=== PATIENT | female | born 1965 | race Asian ===

== ENCOUNTER 2018-11-21 09:07 | Emergency (ER) | payer OTHER, SELFPAY ==
[~2018-11-21] VITALS: Ht 152.4 cm; Wt 74.8 kg
[2018-11-21] MEDS ORDERED: PROMETHAZINE 25 MG/ML, 1ML IM ONE (09:30)
[2018-11-21] MEDS ORDERED: PROMETHAZINE 25 MG/ML, 1ML ONE (09:51)
[2018-11-21 09:52] LABS: BASOPHILS # (AUTO) 0.03 x10^3/uL (0-0.1); BASOPHILS % (AUTO) 0 % (0-1); EOSINOPHILS # (AUTO) 0.03 x10^3/uL (0-0.4); EOSINOPHILS % (AUTO) 0 % (1-7); LYMPHOCYTES # (AUTO) 1.12 x10^3/uL (1-3.4); LYMPHOCYTES % (AUTO) 15 % (22-44); MD NO; MEAN CORPUSCULAR HEMOGLOBIN 29.5 pg (27.0-34.8); MEAN CORPUSCULAR HGB CONC 32.4 g/dL (32.4-35.8); MEAN PLATELET VOLUME 8.8 fL (7.4-10.4); MONOCYTES # (AUTO) 0.29 x10^3/uL (0.2-0.8); MONOCYTES % (AUTO) 4 % (2-9); NEUTROPHILS # (AUTO) 6.23 x10^3/uL (1.8-6.8); NEUTROPHILS % (AUTO) 81 % (42-75); PLATELET COUNT 180 x10^3/uL (130-400); RED BLOOD COUNT 4.54 x10^6/uL (3.82-5.3); RED CELL DISTRIBUTION WIDTH 14.1 % (9.6-15.2)
[2018-11-21 09:59] LABS: ALANINE AMINOTRANSFERASE 19 U/L (12-78); ALBUMIN 3.3 g/dL (3.4-5.0); ANION GAP 14 mmol/L (5-15); CALCIUM 8.5 mg/dL (8.5-10.1); CHLORIDE 104 mmol/L (98-107); CREATININE 1.19 mg/dL (0.55-1.02)
[2018-11-21] MEDS ORDERED: METF500T17 PO (10:00)
[2018-11-21] MEDS ORDERED: THYR60TA PO (10:00)
[2018-11-21] MEDS ORDERED: LEVO88TA4 PO (10:00)
[2018-11-21] MEDS ORDERED: LOSA50TA14 PO (10:00)
--- NOTE | 2018-11-21 10:01 | NUR ---
PT SEEN BY ER LOREE BROWN. ASSESSMENT, POC, ORDERS REVIEWED. PT RESTING ON GURNEY WITH EYES CLOSED WHEN I ENTER THE ROOM. RESP EVEN NON-LABORED. PT ARROUSES EASILY TO VERBAL STIMULI, ORIENTED X 4, GABRIEL EXTREMETIES W/O DIFFICULTY, SPEECH CLEAR, FACE SYMMETRICAL. VSS, EKG COMPLETED. PT VERBALIZES "I FEEL OK NOW, I DON'T KNOW WHAT WAS THE WRONG WITH ME" "I'M JUST VERY TIRED" POC REVIEWED WITH PT AND QUESTIONS ANSWERED. PT TO CT WITH TECH TRANSPORT
[2018-11-21 10:02] LABS: ALKALINE PHOSPHATASE 95 U/L (45-117); BILIRUBIN,TOTAL 0.4 mg/dL (0.2-1.0)
--- NOTE | 2018-11-21 10:39 | NUR ---
PT OOB AND AMBULATE TO BATHROOM UPRIGHT STEADY GAIT. INSTRUCTED ON COLLECTION ON CLEAN CATCH URINE.
--- NOTE | 2018-11-21 10:45 | NUR ---
PT RTD TO ROOM W/O INCIDENT. URINE SENT TO LAB. CALL LIGHT W/I REACH
[2018-11-21 11:02] LABS: PH, VENOUS 7.284 pH (7.320-7.420)
[2018-11-21 11:03] LABS: MICROSCOPIC AUTO
[2018-11-21 11:03] LABS: FIO2 RA %
[2018-11-21 11:05] LABS: CULTURE INDICATED? YES
[2018-11-21 11:23] LABS: ACETONE, SERUM Negative (Negative)
[2018-11-21] MEDS ORDERED: CEFTRIAXONE 1,000 MG ONE (11:36)
[2018-11-21] MEDS ORDERED: LIDOCAINE-MPF 1%, 2ML ONE (11:37)
[2018-11-21] MEDS ORDERED: CEFTRIAXONE 1,000 MG IM ONE (12:00)
[2018-11-21 12:30] VITALS: BP 112/72
--- NOTE | 2018-11-21 12:31 | NUR ---
Patient/Caregiver given discharge instructions and they have confirmed that they understand the instructions. Patient ambulatory with steady gait.
== END 2018-11-21 12:32 | disposition home or self-care (01) ==
LOC: ED 11:50
DX: F43.0 Acute stress reaction (principal); F41.9 Anxiety disorder, unspecified; N30.00 Acute cystitis without hematuria; E11.65 Type 2 diabetes mellitus with hyperglycemia; I10 Essential (primary) hypertension; E66.9 Obesity, unspecified
CPT/HCPCS: 36415; 70450; 80053; 81001; 82010; 82803; 85025; 87077; 87086; 87186; 93005; 96372; 99284; J0696